=== PATIENT | female | born 1935 | race Caucasian/White ===

== ENCOUNTER 2022-12-08 13:26 | Emergency (ER) | payer MEDICARE ==
[~2022-12-08] VITALS: Ht 162.6 cm; Wt 79.0 kg
[2022-12-08 14:00] VITALS: BP 144/55
[2022-12-08 14:41] VITALS: BP 156/57
[2022-12-08 15:00] VITALS: BP 156/55
[2022-12-08] MEDS ORDERED: IBUPROFEN600 MG PO (15:02)
[2022-12-08] MEDS ORDERED: HYDROCO/APAP1 TA9 PO ×2 (15:02→15:24)
[2022-12-08 15:24] VITALS: BP 156/55
== END 2022-12-08 15:37 | disposition home or self-care (01) ==
LOC: ED 13:26
DX: S22.41XA Multiple fractures of ribs, right side, initial encounter for closed fracture (principal); I10 Essential (primary) hypertension; F03.90 Unspecified dementia, unspecified severity, without behavioral disturbance, psychotic disturbance, mood disturbance, and anxiety; W01.190A Fall on same level from slipping, tripping and stumbling with subsequent striking against furniture, initial encounter; Y92.129 Unspecified place in nursing home as the place of occurrence of the external cause